=== PATIENT | female | born 1995 | race Caucasian/White ===

== ENCOUNTER 2019-05-28 13:29 | Emergency (ER) | payer SELFPAY ==
[2019-05-28] MEDS: IBUPROFEN 600 MG TAB PO (14:53)
[2019-05-28] MEDS: CEFTRIAXONE 500 MG INJ IM (14:58)
[2019-05-28] MEDS: LIDOCAINE 1% (MPF) 5 ML VIAL INJ (14:58)
[2019-05-28] MEDS: DEXAMETHASONE 10 MG/ML 1 ML INJ IM (14:58)
== END 2019-05-28 15:14 | disposition home or self-care (01) ==
LOC: FTE 15:14
DX: J02.0 Streptococcal pharyngitis (principal)
CPT/HCPCS: 96372; 99284-25